=== PATIENT | male | born 1955 | race Caucasian/White ===

== ENCOUNTER 2018-06-24 00:26 | Observation (INO) ==
[2018-06-24] MEDS ORDERED: 0.9 % Sodium Chloride 1,000 ML IVC ONE (00:43)
[2018-06-24 01:19] LABS: Basophils % 0.6 %; Eosinophils % 0.8 %; Hematocrit 41.5 % (37.5-50.1); Hemoglobin 13.5 g/dL (12.9-16.9); Immature Granulocytes % 0.4 % (0-4); Lymphocytes # 1.4 K/mcL (0.6-4.6); Mean Corpuscular HGB Conc 32.5 g/dL (31.6-35.5); Mean Corpuscular Volume 95.2 fL (83.0-100.0); Mean Platelet Volume 10.1 fL (9.4-12.4); Monocytes % 18.9 %; Neutrophils # 2.6 K/mcL (1.6-8.9); Platelet Count 147 K/mcL (140-400); Red Blood Count 4.36 M/mcL (4.19-5.50); Red Cell Distribution Width 13.5 % (11.5-14.5); Segmented Neutrophils % 51.3 %
[2018-06-24 01:29] LABS: INR 1.1; Prothrombin Time 12.2 Seconds (9.4-12.1)
[2018-06-24 01:34] LABS: Potassium 4.1 mEq/L (3.5-5.1)
[2018-06-24 01:53] LABS: Platelet Estimate Normal (Normal)
--- NOTE | 2018-06-24 02:26 | Emergency Department Note ---
Disposition Clinical Impression: Dehydration, Chest wall pain Syncope Qualifiers: Syncope type: vasovagal syncope Qualified Code(s): R55 - Syncope and collapse Disposition: Admitted As Inpatient Condition: Fair Referrals: NONE,PCP [Primary Care Provider] - Forms: ED Satisfaction Letter Time of Disposition: 06:07 Syncope HPI - General Chief Complaint: ED Chest Pain Stated Complaint: SUBSTERNAL CHEST TIGHTNESS, fainting episode Time Seen by Provider: 06/24/18 00:36 Source: patient, family, EMS Mode of arrival: EMS Limitations: no limitations Nursing Notes Reviewed: Yes Vital Signs Reviewed: Yes - History of Present Illness HPI Narrative: I talked with patient and family and the patient has been sick for the past couple of days. He had nausea and vomiting and diarrhea. That seemed to settle down but he really has not had much eat or drink yesterday or today before. He been having trouble with lightheadedness when standing. Story he is laying in bed and he went to get out of bed to go to the bathroom and she heard him thought on the ground. She got up and found him on the floor. He was awake but dazed. She had them later when she called the squad. Squad arrived and reportedly found the patient's heart rate between 35 and 40. His blood pressure was 70 systolic. They gave him half a milligram of atropine and by the time they called us on route his heart rate and his blood pressure back to normal. The patient is complaining of blurred of discomfort to his lower chest which she describes a sharp pain hurts when he breathes and hurts when he moves. This has been bothering him since he had been vomiting Pt Subjective Complaint: collapsed Onset (ago): Just DE[employer]EDER Number of episodes: 1 Duration: minutes(s) Prodromal Symptoms: lightheaded Witnessed: yes - by bystander Context: getting out of bed Injuries Sustained Associated with Event: none Current Symptoms: lightheaded Treatments prior to arrival: other (Patient was given dose of atropine because when EMS got to the house his heart rate was in the 30s and his blood pressure was low.) Associated trauma secondary to event: No - Related Data Home Medications Medication Instructions Recorded Confirmed Aspirin Enteric Coated [Aspirin EC] 81 mg PO DAILY 03/31/15 06/24/18 Carvedilol [Coreg] 25 mg PO BID 03/31/15 06/24/18 Lisinopril [Zestril] 10 mg PO DAILY 03/31/15 06/24/18 Simvastatin [Zocor] 40 mg PO HS 03/31/15 06/24/18 Spironolactone [Aldactone] 25 mg PO DAILY 03/31/15 06/24/18 Digoxin [Lanoxin] 0.125 mg PO DAILY 06/24/18 06/24/18 Previous Rx's Medication Instructions Recorded OxyCODONE/APAP 5/325 [Percocet 1 each PO Q6HR PRN #10 tablet 03/31/15 5/325] Allergies Allergy/AdvReac Type Severity Reaction Status Date / Time No Known Allergies Allergy Verified 06/24/18 00:54 All systems ED: reviewed and negative except as stated. Constitutional: Denies: fever, chills ENT ED: Denies: ear pain, throat pain, congestion Cardiovascular: Reports: chest pain. Denies: palpitations Respiratory: Reports: cough. Denies: dyspnea, wheezes Gastrointestinal: Reports: nausea, vomiting. Denies: abdominal pain Integumentary: Denies: rash Neurological: Denies: headache Past Medical History - Past Medical History Attestation: Yes The following information was validated with the patient. Source: patient, old records reviewed, obtained from family, nursing notes reviewed Medical history: Reports: arthritis, CHF, GERD, hyperlipidemia, hypertension, myocardial infarction, renal disease, other Surgical history: Reports: other Psychiatric history: Reports: no psych history - Social History Smoking Status: Former smoker Alcohol use: Reports: none Drug use: Reports: none Physical Exam - General Limitations: no limitations General appearance: alert, in no apparent distress - Head Head exam: atraumatic, normocephalic, normal inspection - Eye Eye exam: Present: normal appearance, PERRL, EOMI. Absent: scleral icterus, conjunctival injection, periorbital swelling - ENT ENT exam: normal exam, normal oropharynx, mucous membranes dry, TM's normal bilaterally, normal external ear exam - Neck Neck exam: Present: normal inspection, full ROM, trachea midline. Absent: meningismus - Chest Chest inspection: Present: normal inspection, symmetric chest wall rise, tenderness (Patient is tender to palpation on the lower ribs and inferior costal margin on both sides.) - Respiratory Respiratory exam: Present: normal lung sounds bilaterally. Absent: respiratory distress, wheezes - Cardiovascular Cardiovascular exam: Present: normal rhythm, bradycardia, normal heart sounds - Abdominal Exam Abdominal exam: Present: soft, Non-Tender, normal bowel sounds. Absent: distention - Extremities Exam Extremities exam: Present: normal inspection. Absent: tenderness, pedal edema - Neurological Exam Neurological exam: Present: alert, oriented X3 - Psychiatric Psychiatric exam: Present: normal affect, normal mood - Skin Skin exam: Present: warm, dry. Absent: rash Course Course Narrative: Patient arrived emergency Department by squad having had a syncopal episode at home. It sounds like a vasovagal episode in that he fainted and his heart rate was low his blood pressure is low. However with history of vomiting and getting lightheaded and fainting immediately after standing up out of bed, it sounds like an orthostatic syncope. The patient is having some chest discomfort but is clearly muscle skeletal on physical exam and by story. Most likely came on because of the vomiting he expressed couple days ago. My suspicion is that the patient is dehydrated and had syncope and dehydration is due to his vomiting illness and decreased by mouth intake over the past 2 days. He has been getting lightheaded when he stands up over the past few days according to family and according to him. I am going to do a cardiac workup on the patient because he was bradycardic and hypotensive in the field and they gave him atropine. However his EKG looks consistent with baseline. He does not some chronic bradycardia. I am going to hydrate him and check labs. Disposition will be based on diagnostic results and reevaluation. - Reevaluation(s) Reevaluation #1: Initial workup shows elevated BUN and creatinine that are double baseline values. This again supports dehydration coupled with the patient's story and his dry mucous membranes. He is got a liter of fluid so far and we will continue IV fluids on him. His EKG looks fine and his initial troponin is negative. I doubt it was an ischemic event that created bradycardia and hypotension. Nonetheless am going to repeat a troponin at the 3 hour maryana here in the department. If that is negative, talk to the hospitalist about admitting him here for completion of hydration and further evaluation. If troponin is changing then he will need to be transferred. Time: 02:30 Reevaluation #2: Repeat troponin is negative. Patient has had a couple of coughing spells and he actually vomits after the coughing. He is gagging because he started to vomit or he is actually coughing and bringing up mucus. Lung exam is fine and chest x-rays negative. He has the clinical dehydration and the BUN and creatinine elevations as described. I think his chest discomfort is muscle skeletal and not cardiac. However with his persistent symptoms or been admitted to the hospital. Re: Spoken with the hospitalist has accepted him for admission. Time: 06:05 - Consultations Consultation #1: Dr. Poole, hospitalist - I discussed the case with the hospitalist including the atropine incident. He is accepted the patient for admission to the hospital. Time: 06:00 Vital Signs Temperature 97.3 F L 06/24/18 00:31 Pulse Rate 56 06/24/18 00:31 Respiratory Rate 20 06/24/18 00:31 Blood Pressure 113/74 06/24/18 00:31 O2 Sat by Pulse Oximetry 98 06/24/18 00:31 Temperature 97.8 F 06/24/18 03:47 Pulse Rate 54 06/24/18 05:34 Respiratory Rate 20 06/24/18 05:34 Blood Pressure 113/70 06/24/18 05:34 O2 Sat by Pulse Oximetry 98 06/24/18 05:34 Oxygen Delivery Oxygen Delivery Room Air Syncope - Medical Records Medical records reviewed: Yes I reviewed the patient's medical records. - Lab Data Lab results reviewed: Yes I reviewed the patient's lab results. Result diagrams: 06/24/18 00:56 06/24/18 00:56 Lab Results 06/24/18 06/24/18 06/24/18 Range/Units 00:56 00:56 00:56 WBC 5.1 (4.3-11.1) K/mcL RBC 4.36 (4.19-5.50) M/mcL Hgb 13.5 (12.9-16.9) g/dL Hct 41.5 (37.5-50.1) % MCV 95.2 (83.0-100.0) fL MCH 31.0 (28.0-33.3) pg MCHC 32.5 (31.6-35.5) g/dL RDW 13.5 (11.5-14.5) % Plt Count 147 (140-400) K/mcL MPV 10.1 (9.4-12.4) fL Immature Gran % 0.4 (0-4) % Seg Neutrophils % 51.3 % Lymphocytes % 28.0 % Monocytes % 18.9 % Eosinophils % 0.8 % Basophils % 0.6 % Neutrophils # 2.6 (1.6-8.9) K/mcL Lymphocytes # 1.4 (0.6-4.6) K/mcL Monocytes # 1.0 (0.0-1.3) K/mcL Eosinophils # 0.0 (0.0-0.6) K/mcL Basophils # 0.0 (0.0-0.2) K/mcL Platelet Estimate Normal (Normal) PT (9.4-12.1) Seconds INR APTT 35.3 (26.0-36.0) Seconds D-Dimer (0-500) ng/mLFEU Sodium 138 (136-145) mEq/L Potassium 4.1 (3.5-5.1) mEq/L Chloride 103 (98-107) mEq/L Carbon Dioxide 23 (23-29) mEq/L BUN 42 H (8-23) mg/dL Creatinine 2.33 H (0.70-1.30) mg/dL Est GFR ( Amer) 35 L (> 60) Est GFR (Non-Af Amer) 29 L (> 60) BUN/Creatinine Ratio 18 (6-26) Glucose 90 (70-105) mg/dL Calculated Osmolality 296 (280-300) Lactic Acid (0.5-2.2) mmol/L Calcium 9.0 (8.6-10.3) mg/dL Troponin I (< 0.04) ng/mL B-Natriuretic Peptide (Less than 100) pg/mL Urine Color (Yellow) Urine Clarity (Clear) Urine pH (5.0-8.0) pH Units Ur Specific [place] (1.010-1.025) Urine Protein (Neg-Trace) mg/dL Urine Glucose (UA) (Normal) mg/dL Urine Ketones (Negative) mg/dL Urine Blood (Negative) Urine Nitrite (Negative) Urine Bilirubin (Negative) Urine Urobilinogen (Normal) mg/dL Ur Leukocyte Esterase (Negative) Urine Microscopic RBC (0-3) per hpf Urine Microscopic WBC (0-3) per hpf Ur Squamous Epith Cells (None-Few) per lpf Urine Bacteria (None-Few) per hpf Hyaline Casts (None-Few) per lpf Urine Mucus (Few) Ur Culture Indicated? (NO) Digoxin (0.8-2.0) ng/mL 06/24/18 06/24/18 06/24/18 Range/Units 00:56 00:56 00:56 WBC (4.3-11.1) K/mcL RBC (4.19-5.50) M/mcL Hgb (12.9-16.9) g/dL Hct (37.5-50.1) % MCV (83.0-100.0) fL MCH (28.0-33.3) pg MCHC (31.6-35.5) g/dL RDW (11.5-14.5) % Plt Count (140-400) K/mcL MPV (9.4-12.4) fL Immature Gran % (0-4) % Seg Neutrophils % % Lymphocytes % % Monocytes % % Eosinophils % % Basophils % % Neutrophils # (1.6-8.9) K/mcL Lymphocytes # (0.6-4.6) K/mcL Monocytes # (0.0-1.3) K/mcL Eosinophils # (0.0-0.6) K/mcL Basophils # (0.0-0.2) K/mcL Platelet Estimate (Normal) PT 12.2 H (9.4-12.1) Seconds INR 1.1 APTT (26.0-36.0) Seconds D-Dimer 435 (0-500) ng/mLFEU Sodium (136-145) mEq/L Potassium (3.5-5.1) mEq/L Chloride (98-107) mEq/L Carbon Dioxide (23-29) mEq/L BUN (8-23) mg/dL Creatinine (0.70-1.30) mg/dL Est GFR ( Amer) (> 60) Est GFR (Non-Af Amer) (> 60) BUN/Creatinine Ratio (6-26) Glucose (70-105) mg/dL Calculated Osmolality (280-300) Lactic Acid 0.6 (0.5-2.2) mmol/L Calcium (8.6-10.3) mg/dL Troponin I (< 0.04) ng/mL B-Natriuretic Peptide 3 (Less than 100) pg/mL Urine Color (Yellow) Urine Clarity (Clear) Urine pH (5.0-8.0) pH Units Ur Specific [place] (1.010-1.025) Urine Protein (Neg-Trace) mg/dL Urine Glucose (UA) (Normal) mg/dL Urine Ketones (Negative) mg/dL Urine Blood (Negative) Urine Nitrite (Negative) Urine Bilirubin (Negative) Urine Urobilinogen (Normal) mg/dL Ur Leukocyte Esterase (Negative) Urine Microscopic RBC (0-3) per hpf Urine Microscopic WBC (0-3) per hpf Ur Squamous Epith Cells (None-Few) per lpf Urine Bacteria (None-Few) per hpf Hyaline Casts (None-Few) per lpf Urine Mucus (Few) Ur Culture Indicated? (NO) Digoxin (0.8-2.0) ng/mL 06/24/18 06/24/18 06/24/18 Range/Units 00:56 01:05 01:52 WBC (4.3-11.1) K/mcL RBC (4.19-5.50) M/mcL Hgb (12.9-16.9) g/dL Hct (37.5-50.1) % MCV (83.0-100.0) fL MCH (28.0-33.3) pg MCHC (31.6-35.5) g/dL RDW (11.5-14.5) % Plt Count (140-400) K/mcL MPV (9.4-12.4) fL Immature Gran % (0-4) % Seg Neutrophils % % Lymphocytes % % Monocytes % % Eosinophils % % Basophils % % Neutrophils # (1.6-8.9) K/mcL Lymphocytes # (0.6-4.6) K/mcL Monocytes # (0.0-1.3) K/mcL Eosinophils # (0.0-0.6) K/mcL Basophils # (0.0-0.2) K/mcL Platelet Estimate (Normal) PT (9.4-12.1) Seconds INR APTT (26.0-36.0) Seconds D-Dimer (0-500) ng/mLFEU Sodium (136-145) mEq/L Potassium (3.5-5.1) mEq/L Chloride (98-107) mEq/L Carbon Dioxide (23-29) mEq/L BUN (8-23) mg/dL Creatinine (0.70-1.30) mg/dL Est GFR ( Amer) (> 60) Est GFR (Non-Af Amer) (> 60) BUN/Creatinine Ratio (6-26) Glucose (70-105) mg/dL Calculated Osmolality (280-300) Lactic Acid (0.5-2.2) mmol/L Calcium (8.6-10.3) mg/dL Troponin I < 0.03 (< 0.04) ng/mL B-Natriuretic Peptide (Less than 100) pg/mL Urine Color Yellow (Yellow) Urine Clarity Clear (Clear) Urine pH 5.0 (5.0-8.0) pH Units Ur Specific [place] 1.025 (1.010-1.025) Urine Protein 30 H (Neg-Trace) mg/dL Urine Glucose (UA) Normal (Normal) mg/dL Urine Ketones Negative (Negative) mg/dL Urine Blood Trace-intact H (Negative) Urine Nitrite Negative (Negative) Urine Bilirubin Negative (Negative) Urine Urobilinogen Normal (Normal) mg/dL Ur Leukocyte Esterase Negative (Negative) Urine Microscopic RBC 0-3 (0-3) per hpf Urine Microscopic WBC 0-3 (0-3) per hpf Ur Squamous Epith Cells Few (None-Few) per lpf Urine Bacteria Few (None-Few) per hpf Hyaline Casts Moderate H (None-Few) per lpf Urine Mucus Few (Few) Ur Culture Indicated? NO (NO) Digoxin 1.1 (0.8-2.0) ng/mL 06/24/18 Range/Units 04:06 WBC (4.3-11.1) K/mcL RBC (4.19-5.50) M/mcL Hgb (12.9-16.9) g/dL Hct (37.5-50.1) % MCV (83.0-100.0) fL MCH (28.0-33.3) pg MCHC (31.6-35.5) g/dL RDW (11.5-14.5) % Plt Count (140-400) K/mcL MPV (9.4-12.4) fL Immature Gran % (0-4) % Seg Neutrophils % % Lymphocytes % % Monocytes % % Eosinophils % % Basophils % % Neutrophils # (1.6-8.9) K/mcL Lymphocytes # (0.6-4.6) K/mcL Monocytes # (0.0-1.3) K/mcL Eosinophils # (0.0-0.6) K/mcL Basophils # (0.0-0.2) K/mcL Platelet Estimate (Normal) PT (9.4-12.1) Seconds INR APTT (26.0-36.0) Seconds D-Dimer (0-500) ng/mLFEU Sodium (136-145) mEq/L Potassium (3.5-5.1) mEq/L Chloride (98-107) mEq/L Carbon Dioxide (23-29) mEq/L BUN (8-23) mg/dL Creatinine (0.70-1.30) mg/dL Est GFR ( Amer) (> 60) Est GFR (Non-Af Amer) (> 60) BUN/Creatinine Ratio (6-26) Glucose (70-105) mg/dL Calculated Osmolality (280-300) Lactic Acid (0.5-2.2) mmol/L Calcium (8.6-10.3) mg/dL Troponin I < 0.03 (< 0.04) ng/mL B-Natriuretic Peptide (Less than 100) pg/mL Urine Color (Yellow) Urine Clarity (Clear) Urine pH (5.0-8.0) pH Units Ur Specific [place] (1.010-1.025) Urine Protein (Neg-Trace) mg/dL Urine Glucose (UA) (Normal) mg/dL Urine Ketones (Negative) mg/dL Urine Blood (Negative) Urine Nitrite (Negative) Urine Bilirubin (Negative) Urine Urobilinogen (Normal) mg/dL Ur Leukocyte Esterase (Negative) Urine Microscopic RBC (0-3) per hpf Urine Microscopic WBC (0-3) per hpf Ur Squamous Epith Cells (None-Few) per lpf Urine Bacteria (None-Few) per hpf Hyaline Casts (None-Few) per lpf Urine Mucus (Few) Ur Culture Indicated? (NO) Digoxin (0.8-2.0) ng/mL - Radiology Data Radiology results reviewed: Yes I reviewed the patient's radiology results. - EKG Data EKG attestation: Yes I reviewed and interpreted this EKG. EKG results narrative: Twelve-lead EKG performed at half past midnight. Ordered, reviewed and interpreted by ED physician shows sinus bradycardia at a rate of 53. Left axis deviation. Findings that could be consistent with left bundle branch block in leads 1 and aVL. No acute ischemic changes.
[2018-06-24 02:27] LABS: Bilirubin,Urine Negative (Negative); Blood,Urine Trace-intact (Negative); Clarity,Urine Clear (Clear); Color,Urine Yellow (Yellow); Glucose,Urine (UA) Normal (Normal); Ketones,Urine Negative (Negative); Leukocyte Esterase,Urine Negative (Negative); Nitrite,Urine Negative (Negative); Protein,Urine 30 mg/dL (Neg-Trace); Specific Gravity,Urine 1.025 (1.010-1.025); Urobilinogen,Urine Normal (Normal)
[2018-06-24] MEDS ORDERED: 0.9 % Sodium Chloride 1,000 ML IVC SCH (02:30)
[2018-06-24 02:38] LABS: RBC,Urine 0-3 per hpf (0-3); Squamous Epithelial Cell,Urine Few per lpf (None-Few); WBC,Urine 0-3 per hpf (0-3)
[2018-06-24 02:39] LABS: Bacteria,Urine Few per hpf (None-Few); Hyaline Casts,Urine Moderate per lpf (None-Few); Mucus,Urine Few (Few)
[2018-06-24] MEDS ORDERED: Naloxone 0.4 MG/ML INJ IVP PRN (06:32)
[2018-06-24] MEDS: *HR* Digoxin 0.125 MG TABLET PO SCH (08:24)
[2018-06-24] MEDS: Aspirin Enteric Coated 81 MG Tablet PO SCH (08:25)
[2018-06-24] MEDS: Ondansetron 4 MG/2 ML VIAL IVP SCH ×3 (08:27→21:30)
[2018-06-24] MEDS: 0.9 % Sodium Chloride 1,000 ML IVC SCH ×2 (11:48→22:35)
[2018-06-24] MEDS ORDERED: Acetaminophen 325 MG TABLET PO ONE (13:44)
[2018-06-24] MEDS ORDERED: Acetaminophen 325 MG TABLET PO PRN (13:44)
--- NOTE | 2018-06-24 14:52 | Internal Med History&Physical ---
Date of Encounter: 06/24/18 Time of Encounter: 14:20 Assessment and Plan (1) Syncope Current visit: Yes Status: Acute Suspect vasovagal syncope with orthostasis. IV fluids have been given and and antihypertensive medication will be held. Orthostatic vital signs will be checked in a.m. Qualifiers: Syncope type: vasovagal syncope Qualified Code(s): R55 - Syncope and collapse (2) Acute on chronic renal failure Current visit: Yes Status: Acute Suspect due to dehydration. IV fluids have been ordered. Labs and orthostatic vital signs will be checked in a.m. Qualifiers: Acute renal failure type: unspecified Chronic kidney disease stage: stage 3 (moderate) Qualified Code(s): N17.9 - Acute kidney failure, unspecified; N18.3 - Chronic kidney disease, stage 3 (moderate) (3) Hypertension Current visit: Yes Status: Chronic Hold blood pressure medication as per above due to borderline hypotension with bradycardia. Qualifiers: Hypertension type: essential hypertension Qualified Code(s): I10 - Essential (primary) hypertension (4) CHF (congestive heart failure) Current visit: Yes Status: Chronic BN peptide in emergency room was 3. Cardiac medications will be held because of hypotension with bradycardia. Qualifiers: Heart failure type: combined systolic and diastolic Heart failure chronicity: chronic Qualified Code(s): I50.42 - Chronic combined systolic (congestive) and diastolic (congestive) heart failure Internal Medicine - H&P: HPI Chief complaint: Syncope, acute on chronic renal failure Admitted From: Emergency Dept Plans for Post Hospital Care: Home History of present illness: Mr. Leslie is a 62 year old male who came to emergency room after having a syncopal episode at home after arising from the bed to walk to the kitchen. He does not recall falling to the floor and states he was only unconscious for a very brief time. His called the EMS. The ER report states when EMS arrived his heart rate was found to be in the 40s and blood pressure 70 systolic. He was given 0.5 mg of atropine and was brought to emergency room. He was found to have acute on chronic renal failure and was admitted to [facility] floor for ongoing care needs. He states he has had a "cold" for a few days with cough productive of greenish sputum. He has had occasional episodes of lightheadedness on standing in the past few days. He admits his oral intake has been decreased from normal during his illness. He denies vomiting but states he has had loose stools in the past 2 days without visible blood. He denies recent changes in his medication regimen. Past Med Surg Social Fam HX - Past Medical History Medical history: arthritis, CHF, GERD, hyperlipidemia, hypertension, myocardial infarction, renal disease, other Additional medical history: sees client solutions specialist and kidney doctor , all r/t when had SC and was given medication to reverse it, it caused kidney damage. Psychiatric history: no psych history - Past Surgical History Surgical History: other Additional surgical history: scraped lung - Social History Smoking Status: Former smoker Smokeless Tobacco Status: No Alcohol use: none Drug use: none Internal Medicine - H&P: Meds Aspirin Enteric Coated [Aspirin EC] 81 mg PO DAILY 03/31/15 [History] Carvedilol [Coreg] 25 mg PO BID 03/31/15 [History] Lisinopril [Zestril] 10 mg PO DAILY 03/31/15 [History] OxyCODONE/APAP 5/325 [Percocet 5/325] 1 each PO Q6HR PRN #10 tablet 03/31/15 [Rx] Simvastatin [Zocor] 40 mg PO HS 03/31/15 [History] Spironolactone [Aldactone] 25 mg PO DAILY 03/31/15 [History] Digoxin [Lanoxin] 0.125 mg PO DAILY 06/24/18 [History] Allergy/AdvReac Type Severity Reaction Status Date / Time No Known Allergies Allergy Verified 06/24/18 00:54 All Systems PM: A 10-system review of systems was performed and is negative for pertinent findings except as documented above in the HPI. Review of systems: Gen.: He states his weight has been stable for the past year Cardiovascular: He has history of hypertension. He reports a heart cath without intervention sometime after the SC. An echocardiogram 09/04/2015 showed sinus bradycardia with bundle branch block and heart rate in the 40s. The LVEF was 40%. The interventricular septum and posterior wall thickness measurements were 1.40 cm each. The LV end-diastolic diameter was 5.60 cm. There was mild to moderate aortic regurgitation. He denies DVT or pulmonary emboli. Respiratory: He smoked from approximately age [age] never exceeding 1 pack per week. He denies chronic lung disease. He had right lung decortication procedure approximately 2004 for complications from parapneumonic effusion from pneumonia. GI: He has had diarrhea in the past 2 days as per history of present illness. 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 He denies other kidney bladder or prostate disorders Neurologic: He denies large distribution strokes or seizures. Endocrine: He denies diabetes thyroid disease or hyperlipidemia Hematology/oncology: Denies blood disorders cancers or anemia Psychiatric: He has occasional feelings of anxiety. He denies depression or other mental health diagnoses [place] skeletal: He denies arthritis gout or other bone joint or muscle disorders. - Constitutional Vitals: Temp Pulse Resp BP Pulse Ox 98.0 F 62 16 91/59 95 06/24/18 11:06 06/24/18 11:06 06/24/18 11:06 06/24/18 11:06 06/24/18 11:06 Exam: Gen.: He is a well-developed well-nourished male lying in bed who appears in no acute distress at present time HEENT: Head is atraumatic and normocephalic. Eyes: EOMI. There is no scleral icterus. Mouth: Mucosa is moist. Neck: Supple and nontender. There is no thyromegaly or adenopathy noted. Heart: Regular without murmurs gallops or ectopics Lungs: No wheezes are heard. He has crackles in the right lung base posteriorly that do not clear with coughing. Abdomen: Soft and nontender. No masses or guarding are noted. Extremities: There is no cyanosis edema or clubbing noted. Dorsalis pedis and posterior tibial pulses are trace to 1+ palpable bilaterally. Neurologic: Mental status: He is talkative and a good historian. Cranial nerves: Smile is symmetric. Forehead wrinkles bilaterally. Tongue protrudes midline. EOMI. Motor: There is no pronator drift. Cerebellar: Finger to nose is intact bilaterally. Skin: Warm and dry. He has a well-healed right thoracotomy scar Internal Med - H&P Results - Labs CBC & Chem 7: 06/24/18 00:56 06/24/18 00:56 Labs: Short CBC 06/24/18 Range/Units 00:56 WBC 5.1 (4.3-11.1) K/mcL Hgb 13.5 (12.9-16.9) g/dL Hct 41.5 (37.5-50.1) % Plt Count 147 (140-400) K/mcL Neutrophils # 2.6 (1.6-8.9) K/mcL BMP 06/24/18 00:56 Sodium 138 Potassium 4.1 Chloride 103 Carbon Dioxide 23 BUN 42 H Creatinine 2.33 H Glucose 90 Calcium 9.0 Cardiac Enzymes 06/24/18 06/24/18 06/24/18 Range/Units 00:56 04:06 07:02 Troponin I < 0.03 < 0.03 < 0.03 (< 0.04) ng/mL 06/24/18 Range/Units 13:44 Troponin I 0.03 (< 0.04) ng/mL Urine 06/24/18 Range/Units 01:52 Urine Color Yellow (Yellow) Urine Clarity Clear (Clear) Urine pH 5.0 (5.0-8.0) pH Units Ur Specific [place] 1.025 (1.010-1.025) Urine Protein 30 H (Neg-Trace) mg/dL Urine Glucose (UA) Normal (Normal) mg/dL - Impressions ITS Impressions Chest X-Ray 06/24/18 00:42 IMPRESSION: No acute disease. D/ / Brodie Mooney MD / Brodie Mooney MD Interpreting Provider: Brodie Mooney MD
--- NOTE | 2018-06-24 15:21 | Electrocardiograph Report ---
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
--- NOTE | 2018-06-24 16:41 | Electrocardiograph Report ---
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
[2018-06-25 07:36] LABS: Phosphorous 2.8 mg/dL (2.7-4.5); Uric Acid 9.6 mg/dL (2.3-7.6)
[2018-06-25] MEDS: Ondansetron 4 MG/2 ML VIAL IVP SCH (08:12)
[2018-06-25] MEDS: Aspirin Enteric Coated 81 MG Tablet PO SCH (08:12)
[2018-06-25] MEDS: *HR* Digoxin 0.125 MG TABLET PO SCH (08:12)
[2018-06-25 08:29] VITALS: BP 111/67
--- NOTE | 2018-06-25 12:00 | Discharge Summary ---
Orders not resulted at time of discharge: Pending orders 06/24/18 00:56 Culture,Blood [BC] Stat Date of Encounter: 06/25/18 Time of Encounter: 11:45 - Discharge Diagnosis (1) Syncope Priority: Primary Status: Acute Qualifiers: Syncope type: vasovagal syncope Qualified Code(s): R55 - Syncope and collapse (2) Acute on chronic renal failure Priority: Secondary Status: Acute Qualifiers: Acute renal failure type: unspecified Chronic kidney disease stage: stage 3 (moderate) Qualified Code(s): N17.9 - Acute kidney failure, unspecified; N18.3 - Chronic kidney disease, stage 3 (moderate) (3) Hypertension Priority: Secondary Status: Chronic Qualifiers: Hypertension type: essential hypertension Qualified Code(s): I10 - Essential (primary) hypertension (4) CHF (congestive heart failure) Priority: Secondary Status: Chronic Qualifiers: Heart failure type: combined systolic and diastolic Heart failure chronicity: chronic Qualified Code(s): I50.42 - Chronic combined systolic (congestive) and diastolic (congestive) heart failure Hospital course: Mr. Leslie is a 62 year old male who came to emergency room after having a syncopal episode at home after arising from the bed to walk to the kitchen. He does not recall falling to the floor and states he was only unconscious for a very brief time. His called the EMS. The ER report states when EMS arrived his heart rate was found to be in the 40s and blood pressure 70 systolic. He was given 0.5 mg of atropine and was brought to emergency room. He was found to have acute on chronic renal failure and was admitted to [facility] for ongoing care needs. Initial orders were written by the emergency room physician. I saw him on June 24 and performed the history and physical. Coreg and lisinopril were held due to borderline hypotension. Orthostatic vital signs showed blood pressure 111/67 lying, 103/63 sitting, and 99/59 standing. Heart rate increased from 50 lying to 54 sitting to 56 standing. He will remain off Coreg and lisinopril at discharge and his PCP can monitor. He had no further syncopal or near syncopal episodes and was able to ambulate in the room without difficulty on June 25. He felt stable for discharge home. He will follow with his PCP CANDACE Jerry CNP within 1 week. Follow-up labs can be ordered by his PCP to monitor renal function. Uric acid level returned elevated at 9.6 on day of discharge. He was asymptomatic so urate lowering medication was not prescribed. Follow-up labs can be done to see if uric acid level decreases with improved renal function. - Time Spent with Patient Total time spent providing and/or coordinating discharge services: - Discharge Medications Home Medications: Aspirin Enteric Coated [Aspirin EC] 81 mg PO DAILY 03/31/15 [History] OxyCODONE/APAP 5/325 [Percocet 5/325] 1 each PO Q6HR PRN #10 tablet 03/31/15 [Rx] Simvastatin [Zocor] 40 mg PO HS 03/31/15 [History] Digoxin [Lanoxin] 0.125 mg PO DAILY 06/24/18 [History] Allergies/Adverse Reactions: Allergy/AdvReac Type Severity Reaction Status Date / Time No Known Allergies Allergy Verified 06/24/18 00:54 Date of admission: 06/24/18 06:19 Primary care physician: CANDACE Jerry CNP - Constitutional Vitals: Temp Pulse Resp BP Pulse Ox 98.6 F 50 20 111/67 94 06/25/18 08:29 06/25/18 08:29 06/25/18 08:29 06/25/18 08:29 06/25/18 08:29 - Patient Status Disposition: Home, Self-Care Condition: Fair - Discharge Instructions Follow Up With: Ed Jerry, PHYSICAL EDUCATION DEPARTMENT CHAIR [Advanced Practice Nurse] - 1 week - Diet and Activity Activity: resume usual activities as tolerated Diet: advance to your usual diet - VTE Documentation of Mechanical Device: Graduated compression elastic hosiery
== END 2018-06-25 13:30 | disposition home or self-care (01) ==
LOC: INPPIK 00:26 → EMEROOPIK 00:26 → INPPIK 06:25
PROVIDERS: ADMIT Internal Medicine; ATTEND Internal Medicine